=== PATIENT | male | born 1955 ===

== ENCOUNTER → 2022-08-06 11:22 | Outpatient (CLI) | payer OTHER, SELFPAY ==
--- NOTE | ~2022-08-06 | MR_ITS ---
EXAMINATION: MR shoulder RT wo con DATE: 08/06/2022 11:46 INDICATION: Right shoulder pain TECHNIQUE: Magnetic resonance imaging (MRI) of the right shoulder was performed without intravenous c ontrast. Sequences included axial PD-weighted FS FSE, coronal oblique PD-weighted FS FSE, coronal obl ique T2-weighted FS FSE, sagittal PD-weighted FS FSE, and sagittal T1-weighted SE. COMPARISON: None. FINDINGS: Coracoacromial arch: The acromion undersurface is curved in morphology (type II). Mild thickening of the acromial side of the coracoacromial ligament. Moderate acromioclavicular osteoarthritis with mild cystic changes at sean th sides of the joint space. Rotator cuff: Mild to moderate supraspinatus and infraspinatus tendinopathy greatest at the conjoined portion of th e tendons. A couple very small partial-thickness intrasubstance tears are process. Approximately 2 mm AP and involving approximately 50% tendon thickness along the superior facet footplate of the supras pinatus tendon and 4 mm AP and involving no greater than one third of the tendon thickness facet foot plate of the infraspinatus tendon. The teres minor tendon is normal. Mild subscapularis tendinopathy with additional very small partial-thickness intrasubstance tear along the lesser tuberosity footplat e of the tendon. Normal rotator cuff muscle bulk and signal. Biceps tendon, glenoid labrum and glenohumeral cartilage: Long head of the biceps tendon is normal. Partial-thickness chondral ulceration with chondral surface regularity along the medial side of the humeral head. Partial-thickness cartilage loss with smooth c hondral surfaces at the central aspect of the glenoid. Subtle SLAP tear at the 12:00-10:30 position o f the posterior superior glenoid labrum. Additional very small labral tear at the 4:30 position of th e anteroinferior glenoid labrum. Fluid: Physiologic amount of fluid in the glenohumeral joint and biceps tendon sheath. No loose osteochondr al bodies. Small amount of fluid in the subacromial/subdeltoid bursa consistent with mild bursitis. Bones: Interval low signal intensity bone islands along the greater tuberosity and at the posterior glenoid. Otherwise normal marrow signal with no edema, fracture or abnormal marrow replacing process. IMPRESSION: 1. Mild glenohumeral osteoarthritis with. The posterior superior glenoid labrum and very small tear a t the anteroinferior labrum. 2. Mild to moderate rotator cuff tendinopathy with 3 separate very small partial-thickness intrasubst ance tears along the footplates of the supraspinatus, infraspinatus and subscapularis tendons. 3. Moderate acromioclavicular osteoarthritis. 4. Mild subacromial/subdeltoid bursitis. Reviewed, dictated and finalized at location A. IMPRESSION: 1. Mild glenohumeral osteoarthritis with. The posterior superior glenoid labrum and very small tear at the anteroinferior labrum. 2. Mild to moderate rotator cuff tendinopathy with 3 separate very small partia l-thickness intrasubstance tears along the footplates of the supraspinatus, inf raspinatus and subscapularis tendons. 3. Moderate acromioclavicular osteoarthritis. 4. Mild subacromial/subdeltoid bursitis.
== END ==
PROVIDERS: PCP Orthopaedic Surgery; Visit Provider Orthopaedic Surgery
DX: M25.511 Pain in right shoulder (principal); M19.011 Primary osteoarthritis, right shoulder; S43.491A Other sprain of right shoulder joint, initial encounter; M77.8 Other enthesopathies, not elsewhere classified; M75.51 Bursitis of right shoulder
CPT/HCPCS: 73221